=== PATIENT | female | born 1975 | race Caucasian/White ===

== ENCOUNTER 2017-07-09 18:17 | Emergency (ER) | payer OTHER ==
[~2017-07-09] VITALS: Ht 167.6 cm; Wt 88.5 kg
[~2017-07-09 18:17] MED LIST: ADVAIR 100-501 EACH IH; ADVAIR 500/501 DISK IH; CLONIDINE HCL0.1 MG PO; COMPLETENATE T1 EACH PO; Colace PO; DEPAKOTE500 MG PO; DILAUDID2 MG PO; Diabeta,Micronase PO; EFFEXOR XR150 MG PO; ENDOCET 5-3251 EACH PO; FIORICET,ESG1 TABLET PO; FLEXERIL10 MG PO; Feosol PO; GLUCOPHAGE500 MG PO; HALDOL5 MG PO; IBUPROFEN800 MG PO; IMITREX100 MG PO; LITHIUM CARBON300 MG PO; MELATONIN5 M1 PO; MINIPRESS2 MG PO; MINIPRESS5 MG PO; MOTRIN800 MG PO; Motrin PO; NEURONTIN800 MG PO; NOVOLOG PE100 UNITS/ SC; NOVOLOG100 UNIT/1 SC; NovoLIN N (NPH),Humu SC; OXYCODONE-APAP1 EACH PO; PRENATAL ONE T1 EACH PO; PROAIR HFA8.5 GM; PROMETHAZINE HC25 M1 PO; PROVENTIL HFA6.7 GM IH; PROVENTIL,2.5 MG/3 M IH; PROVENTIL17 GM; PULMICORT1 MG/2 ML IH; Pepcid PO; Percocet 5/325,Endoc PO; Proventil,Ventolin H IH; Pulmicort 90 microgr IH; RANITIDINE HCL150 MG PO; ROXICET 5-3251 EACH PO; SAPHRIS5 MG SL; SEROQUEL100 MG PO; SEROQUEL400 MG PO; TALADINE150 MG PO; TOPAMAX PO; TRAZODONE HCL100 MG PO; TYLENOL325 M1 PO; ULTRAM50 MG PO; glyburide PO
[2017-07-09 18:40] VITALS: BP 130/93
[2017-07-09] MEDS ORDERED: FLEXERIL5 MG PO (21:07)
[2017-07-09] MEDS ORDERED: NORCO 5/3251 TABLET PO (21:07)
[2017-07-09] MEDS ORDERED: PREDNISONE50 MG PO (21:07)
== END 2017-07-09 21:39 | disposition home or self-care (01) ==
LOC: EME 18:17 → RME 18:17
DX: G89.29 Other chronic pain (principal); M54.5 Low back pain; R22.31 Localized swelling, mass and lump, right upper limb; E11.9 Type 2 diabetes mellitus without complications; Z79.84 Long term (current) use of oral hypoglycemic drugs; J45.909 Unspecified asthma, uncomplicated; F17.200 Nicotine dependence, unspecified, uncomplicated; Z88.0 Allergy status to penicillin; Z88.6 Allergy status to analgesic agent
CPT/HCPCS: 99281; 99284